=== PATIENT | female | born 1935 | race Two or more races ===

== ENCOUNTER 2017-10-22 09:02 | Outpatient (CLI) | payer OTHER | END 2017-10-22 09:08 | disposition home or self-care (01) | LOC: RX STUDY 09:02 | DX: R13.14 Dysphagia, pharyngoesophageal phase (principal) ==

== ENCOUNTER 2018-01-14 07:02 | Outpatient (CLI) | payer OTHER | END 2018-01-14 07:17 | disposition home or self-care (01) | LOC: NUCLEAR 07:02 | DX: I20.8 Other forms of angina pectoris (principal) | CPT/HCPCS: 78452; 93017; A9500; J0153 ==

== ENCOUNTER → 2018-01-26 | Outpatient (CLI) | payer OTHER | END | disposition home or self-care (01) | LOC: RAD 13:42 | DX: S99.821A Other specified injuries of right foot, initial encounter (principal) ==

== ENCOUNTER 2018-02-03 09:11 | Outpatient (CLI) | payer OTHER | END 2018-02-03 09:18 | disposition home or self-care (01) | LOC: TOM 09:11 | DX: J44.1 Chronic obstructive pulmonary disease with (acute) exacerbation (principal) ==

== ENCOUNTER 2018-04-20 09:00 | Outpatient (CLI) | payer OTHER | END 2018-04-20 09:20 | disposition home or self-care (01) | LOC: MRI 09:00 | DX: M54.2 Cervicalgia (principal) | CPT/HCPCS: 72141 ==

== ENCOUNTER → 2019-01-20 | Outpatient (CLI) | payer OTHER | END | disposition home or self-care (01) | LOC: TOM 09:04 | DX: K57.30 Diverticulosis of large intestine without perforation or abscess without bleeding (principal) ==

== ENCOUNTER 2019-11-07 12:45 | Outpatient (CLI) | payer OTHER | END 2019-11-07 12:53 | disposition home or self-care (01) | LOC: NUCLEAR 12:45 | PROVIDERS: ATTEND Internal Medicine Rheumatology | DX: M81.8 Other osteoporosis without current pathological fracture (principal) ==

== ENCOUNTER 2020-03-17 07:21 | Emergency (ER) | payer OTHER ==
[~2020-03-17] VITALS: Ht 147.3 cm; Wt 38.6 kg
[2020-03-17] MEDS ORDERED: LEVOTHYROXINE25 MCG (07:42)
== END 2020-03-17 12:52 | disposition home or self-care (01) ==
LOC: ER 07:21
DX: R53.81 Other malaise (principal); G25.2 Other specified forms of tremor; F41.8 Other specified anxiety disorders; Z03.818 Encounter for observation for suspected exposure to other biological agents ruled out

== ENCOUNTER 2020-04-04 11:45 | Outpatient (CLI) | payer OTHER ==
[~2020-04-04 11:45] MED LIST: LEVOTHYROXINE25 MCG
== END 2020-04-04 11:51 | disposition home or self-care (01) ==
LOC: LAB 11:45
PROVIDERS: ATTEND Radiology Diagnostic Radiology
DX: N20.0 Calculus of kidney (principal)

== ENCOUNTER 2020-04-06 08:08 | Outpatient (CLI) | payer OTHER | END 2020-04-06 08:27 | disposition home or self-care (01) | LOC: TOM 08:08 | PROVIDERS: ATTEND Internal Medicine | DX: K59.09 Other constipation (principal); R91.1 Solitary pulmonary nodule; R63.4 Abnormal weight loss; C18.8 Malignant neoplasm of overlapping sites of colon; R63.0 Anorexia ==

== ENCOUNTER 2020-04-08 15:20 | Emergency (ER) | payer OTHER ==
[~2020-04-08] VITALS: Ht 137.2 cm; Wt 39.9 kg
[2020-04-08] MEDS ORDERED: SERTRALINE HCL50 MG PO (16:01)
[2020-04-08] MEDS ORDERED: RESTORIL15 MG PO (16:02)
[2020-04-08] MEDS ORDERED: PRIMIDONE250 MG PO (16:02)
[2020-04-08] MEDS ORDERED: ACETAMINOPHEN650 M2 PO (17:33)
== END 2020-04-08 17:42 | disposition home or self-care (01) ==
LOC: ER 15:20
DX: S00.11XA Contusion of right eyelid and periocular area, initial encounter (principal); S00.83XA Contusion of other part of head, initial encounter; S70.01XA Contusion of right hip, initial encounter; R51.9 Headache, unspecified; R53.81 Other malaise; W18.09XA Striking against other object with subsequent fall, initial encounter; Y93.89 Activity, other specified; Y92.89 Other specified places as the place of occurrence of the external cause; Y99.8 Other external cause status

== ENCOUNTER 2020-04-24 08:32 | Outpatient (CLI) | payer OTHER ==
[~2020-04-24 08:32] MED LIST changes: +ACETAMINOPHEN650 M2 PO; +PRIMIDONE250 MG PO; +RESTORIL15 MG PO; +SERTRALINE HCL50 MG PO
== END 2020-04-24 08:40 | disposition home or self-care (01) ==
LOC: NUCLEAR 08:32
PROVIDERS: ATTEND Internal Medicine
DX: I11.9 Hypertensive heart disease without heart failure (principal); I42.9 Cardiomyopathy, unspecified

== ENCOUNTER 2021-05-07 09:40 | Outpatient (CLI) | payer OTHER | END 2021-05-07 09:52 | disposition home or self-care (01) | LOC: SONOGRAMA 09:40 | PROVIDERS: ATTEND Internal Medicine | DX: E04.2 Nontoxic multinodular goiter (principal); R10.13 Epigastric pain; R22.1 Localized swelling, mass and lump, neck ==

== ENCOUNTER → 2021-09-20 09:14 | Outpatient (CLI) | payer OTHER | END | disposition home or self-care (01) | LOC: NUCLEAR 09:14 | PROVIDERS: ATTEND Internal Medicine | DX: M81.0 Age-related osteoporosis without current pathological fracture (principal); H90.6 Mixed conductive and sensorineural hearing loss, bilateral; G20 Parkinson's disease; I51.0 Cardiac septal defect, acquired; R63.0 Anorexia; R63.4 Abnormal weight loss; R19.7 Diarrhea, unspecified; N32.3 Diverticulum of bladder; E78.00 Pure hypercholesterolemia, unspecified; E04.2 Nontoxic multinodular goiter; K21.9 Gastro-esophageal reflux disease without esophagitis; M15.9 Polyosteoarthritis, unspecified; M54.2 Cervicalgia ==

== ENCOUNTER 2022-02-17 10:08 | Emergency (ER) | payer OTHER ==
[~2022-02-17] VITALS: Ht 160 cm; Wt 36.3 kg
[2022-02-17] MEDS ORDERED: OMEPRAZOLE20 MG PO (10:19)
[2022-02-17] MEDS ORDERED: IBANDRONATE SO150 MG PO (10:20)
== END 2022-02-17 15:45 | disposition home or self-care (01) ==
LOC: ER 10:08
DX: R51.9 Headache, unspecified (principal); E03.9 Hypothyroidism, unspecified

== ENCOUNTER 2022-02-19 13:19 | Emergency (ER) | payer OTHER ==
[~2022-02-19] VITALS: Ht 134.6 cm; Wt 36.3 kg
[~2022-02-19 13:19] MED LIST changes: +IBANDRONATE SO150 MG PO; +OMEPRAZOLE20 MG PO
[2022-02-19] MEDS ORDERED: VALTREX1000 MG PO (15:30)
== END 2022-02-19 15:43 | disposition home or self-care (01) ==
LOC: ER 13:19
DX: B02.9 Zoster without complications (principal)

== ENCOUNTER 2023-05-19 13:27 | Outpatient (CLI) | payer OTHER ==
[~2023-05-19 13:27] MED LIST changes: +VALTREX1000 MG PO
== END 2023-05-19 13:28 | disposition home or self-care (01) ==
LOC: NUCLEAR 13:27
PROVIDERS: ATTEND Internal Medicine
DX: M81.0 Age-related osteoporosis without current pathological fracture (principal)

== ENCOUNTER 2023-10-26 13:55 | Emergency (ER) | payer OTHER ==
[~2023-10-26] VITALS: Ht 152.4 cm; Wt 45.4 kg
[2023-10-26 16:26] LABS: HEMATOCRIT 40.8 % (36.0-45.00); HEMOGLOBIN 13.9 g/dL (12.0-15.00); MEAN CELL VOLUME 94.8 fL (80.00-100.00); MEAN CORPUSCULAR HEMOGLOBIN 32.3 pg (27.00-32.0); MEAN CORPUSCULAR HGB CONC 34.1 g/dl (32.0-36.0); PLATELET COUNT 200 K/uL (150-450); RED BLOOD COUNT 4.31 M/uL (4.00-6.00); RED CELL DISTRIBUTION WIDTH 15.3 % (11.5-14.5)
[2023-10-26 16:36] LABS: PH,URINE 6.5 (5.0-8.0); URINE APPEARANCE Clear; URINE BILIRRUBIN Negative (NEGATIVE); URINE BLOOD Negative; URINE COLOR Yellow; URINE GLUCOSE Negative (NEGATIVE); URINE KETONE Negative (NEGATIVE); URINE LEUKOCYTE Negative; URINE NITRATE Negative; URINE PROTEIN Negative (NEGATIVE); URINE UROBILINOGEN 0.2 E.U./dl
[2023-10-26 16:37] LABS: URINE RBC 5.6 uL (0.0-20.8)
[2023-10-26 16:41] LABS: ob NEGATIVE (NEGATIVE)
[2023-10-26 16:42] LABS: CALCIUM 9.6 mg/dL (8.5-10.1); CREATININE SERUM 0.54 mg/dL (0.55-1.02); GFR 106.54; POTASSIUM 4.12 mEq/L (3.5-5.1)
[2023-10-26 16:42] LABS: URINE BACTERIA 3.7 uL (0.0-1933); URINE EPITHELIAL CELLS 1.3 uL (0.0-38.8); URINE WBC 0.3 uL (0.0-23.2)
== END 2023-10-26 17:49 ==
LOC: ER 13:57
PROVIDERS: Nurse Practitioner Family
DX: B34.9 Viral infection, unspecified (principal); R53.81 Other malaise; Z20.822 Contact with and (suspected) exposure to COVID-19; I10 Essential (primary) hypertension; E03.8 Other specified hypothyroidism

== ENCOUNTER → 2024-07-18 | Emergency (ER) | payer OTHER ==
[~2024-07-18] VITALS: Ht 149.9 cm; Wt 42.2 kg
[~2024-07-18] MED LIST changes: +BENZONATATE 100 MG CAPSULE PO ONE; +GUAIFENESIN 100 MG/5 ML BLIST.PACK PO ONE; +GUAIFENESIN 200 MG/10 ML BLIST.PACK PO ONE
[2024-07-18 14:58] LABS: HEMATOCRIT 40.7 % (36.0-45.00); MEAN CELL VOLUME 94.8 fL (80.00-100.00); MEAN CORPUSCULAR HEMOGLOBIN 32.7 pg (27.00-32.0); MEAN CORPUSCULAR HGB CONC 34.5 g/dl (32.0-36.0); PLATELET COUNT 400 K/uL (150-450); RED BLOOD COUNT 4.29 M/uL (4.00-6.00); RED CELL DISTRIBUTION WIDTH 13.5 % (11.5-14.5)
[2024-07-18 15:48] LABS: INFLUENZA A AG NEGATIVE (NEGATIVE)
[2024-07-18 15:54] LABS: COVID-19 AG NEGATIVE (NEGATIVE)
== END | disposition home or self-care (01) ==
LOC: ER 11:51
PROVIDERS: General Practice
DX: J06.9 Acute upper respiratory infection, unspecified (principal); R05.9 Cough, unspecified; Z20.822 Contact with and (suspected) exposure to COVID-19; I10 Essential (primary) hypertension

== ENCOUNTER 2024-12-28 12:49 | Emergency (ER) | payer OTHER ==
[~2024-12-28] VITALS: Ht 149.9 cm; Wt 42.2 kg
[~2024-12-28 12:49] MED LIST changes: -BENZONATATE 100 MG CAPSULE PO ONE; -GUAIFENESIN 100 MG/5 ML BLIST.PACK PO ONE; -GUAIFENESIN 200 MG/10 ML BLIST.PACK PO ONE
[2024-12-28] MEDS ORDERED: ACETAMINOPHEN 500 MG GEL..CAP PO ONE (14:45)
[2024-12-28] MEDS ORDERED: ORPHENADRINE CITRATE 30 MG/ML AMPUL IM ONE (14:45)
[2024-12-28 17:06] VITALS: BP 124/77; O2SAT 96
== END 2024-12-28 17:08 ==
LOC: ER 12:49
DX: S00.03XA Contusion of scalp, initial encounter (principal); W07.XXXA Fall from chair, initial encounter; Y93.89 Activity, other specified; Y92.89 Other specified places as the place of occurrence of the external cause; Y99.9 Unspecified external cause status; M54.50 Low back pain, unspecified; M51.369 Other intervertebral disc degeneration, lumbar region without mention of lumbar back pain or lower extremity pain; E03.9 Hypothyroidism, unspecified; G20.A1 Parkinson's disease without dyskinesia, without mention of fluctuations
CPT/HCPCS: 70450; 72100; 72125; 73521; 96372; 99284; J2360

== ENCOUNTER 2025-02-16 09:39 | Outpatient (CLI) | payer OTHER | END 2025-02-16 09:40 | disposition home or self-care (01) | LOC: NUCLEAR 09:39 | PROVIDERS: ATTEND Psychiatry & Neurology Clinical Neurophysiology | DX: G30.1 Alzheimer's disease with late onset (principal) | CPT/HCPCS: 78803; A9557 ==